=== PATIENT | male | born 1990 | race American Indian/Alaskan Native ===

== ENCOUNTER 2016-11-02 05:27 | Emergency (ER) | payer BC, OTHER ==
[2016-11-02] MEDS ORDERED: NORCO 7.5/325 PO ONE (07:57)
[2016-11-02] MEDS ORDERED: ROCEPHIN IM ONE (07:57)
[2016-11-02] MEDS ORDERED: TORADOL IM ONE (07:57)
[2016-11-02] MEDS ORDERED: XYLOCAINE 1% MPF 5 mL INFILTRATI ONE (07:57)
[2016-11-02] MEDS ORDERED: ZITHROMAX PO ONE (07:57)
[2016-11-02] MEDS ORDERED: FLEXERIL PO ONE (07:57)
[2016-11-02 08:24] LABS: Bilirubin,Urine NEG (Negative); Blood,Urine NEG (Negative); Ketones,Urine NEG (Negative); Leukocyte Esterase,Urine TR (Negative); Mucus,Urine FEW /HPF; Nitrite,Urine NEG (Negative); Protein,Urine <15 mg/dL mg/dL (Negative); Urobilinogen,Urine < 2.0 mg/dL (<2.0)
--- NOTE | 2016-11-02 09:34 | XRay Report ---
FINAL REPORT EXAM: XR SPINE THORACIC 3V HISTORY: back pain, popping sensation TECHNIQUE: 3 views of the thoracic spine PRIORS: None FINDINGS: Scoliosis dextroconvex thoracic scoliosis, measuring about 15 from the upper endplate of T1 to the lower endplate of T11. No fracture or focal malalignment. Vertebral body heights and disc spaces appear normal. IMPRESSION: 1. Scoliosis.
--- NOTE | 2016-11-02 09:34 | XRay Report ---
FINAL REPORT EXAM: XR SPINE LUMBOSACRAL 2-3V HISTORY: back pain, popping sensation TECHNIQUE: 3 views of the lumbar spine. PRIORS: None FINDINGS: Thoracolumbar scoliosis, convex to the right which measures about 20 from the lower endplate of T11 to the lower endplate of L4. Transitional lumbosacral anatomy.. Normal SI joints. No focal alignment abnormality. Discs are maintained. 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 IMPRESSION: 1. Scoliosis. 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
--- NOTE | 2016-11-02 10:13 | Emergency Department Report ---
ED Back Pain/Injury HPI - General Chief Complaint: Back Pain/Injury Stated Complaint: BACK PAIN Source: patient Mode of arrival: Ambulatory Limitations: No Limitations - History of Present Illness Initial Comments: 26 year old male presents to ED with upper and lower back pain and would also like to be checked for STD. patient is stable, neurologically intact and in no acute distress. patient denies injury or trauma. patient also states he has been sexually active with someone who was recently diagnosed with STD. MD Complaint: back pain -: Gradual Similar Symptoms Previously: No Radiation: none Severity: mild Severity scale (0 -10): 1 Quality: aching Consistency: intermittent Worsens With: movement Associated Symptoms: denies other symptoms. denies: confusion, weakness, chest pain, numbness, difficulty walking, cough, difficulty urinating, diaphoresis, incontinence, fever/chills, constipation, headaches, abdominal pain, loss of appetite, malaise, nausea/vomiting, seizure, shortness of breath - Related Data Previous Rx's Medication Instructions Recorded Last Taken Type Ketorolac [Toradol] 10 mg PO Q6H PRN #20 tablet 11/02/16 Unknown Rx methOCARBAMOL [Robaxin TAB] 500 mg PO BID #20 tab 11/02/16 Unknown Rx Allergies Allergy/AdvReac Type Severity Reaction Status Date / Time No Known Allergies Allergy Verified 11/02/16 07:16 ED Review of Systems ROS: Stated complaint: BACK PAIN Other details as noted in HPI Constitutional: denies: chills, fever Eyes: denies: eye pain, eye discharge, vision change ENT: denies: ear pain, throat pain Respiratory: denies: cough, shortness of breath, wheezing Cardiovascular: denies: chest pain, palpitations Endocrine: no symptoms reported Gastrointestinal: denies: abdominal pain, nausea, diarrhea Genitourinary: denies: urgency, dysuria Musculoskeletal: back pain. denies: joint swelling Skin: denies: rash, lesions Neurological: denies: headache, weakness, paresthesias Psychiatric: denies: anxiety, depression Hematological/Lymphatic: denies: easy bleeding, easy bruising ED Past Medical Hx - Past Medical History Previous Medical History?: No - Surgical History Past Surgical History?: No - Social History Smoking Status: Current Some Day Smoker Substance Use Type: Alcohol - Medications Home Medications: Home Medications Medication Instructions Recorded Confirmed Last Taken Type Ketorolac [Toradol] 10 mg PO Q6H PRN #20 tablet 11/02/16 Unknown Rx methOCARBAMOL [Robaxin TAB] 500 mg PO BID #20 tab 11/02/16 Unknown Rx ED Physical Exam - General Limitations: No Limitations General appearance: alert, in no apparent distress - Head Head exam: Present: atraumatic, normocephalic - Eye Eye exam: Present: normal appearance - ENT ENT exam: Present: mucous membranes moist - Neck Neck exam: Present: normal inspection - Respiratory Respiratory exam: Present: normal lung sounds bilaterally. Absent: respiratory distress - Cardiovascular Cardiovascular Exam: Present: regular rate, normal rhythm. Absent: systolic murmur, diastolic murmur, rubs, gallop - GI/Abdominal GI/Abdominal exam: Present: soft, normal bowel sounds. Absent: distended, tenderness - Rectal Rectal exam: Present: deferred - Extremities Exam Extremities exam: Present: normal inspection, full ROM. Absent: tenderness - Back Exam Back exam: Present: normal inspection, full ROM, other (patellar reflexes normal bilaterally, normal strength in all 4 extremeties ). Absent: tenderness - Neurological Exam Neurological exam: Present: alert, oriented X3, normal gait - Psychiatric Psychiatric exam: Present: normal affect, normal mood - Skin Skin exam: Present: warm, dry, intact, normal color. Absent: rash ED Course Vital Signs 11/02/16 11/02/16 07:13 10:31 Temperature 98.5 F Pulse Rate 87 80 Respiratory 16 18 Rate Blood Pressure 126/71 Blood Pressure 122/68 [Right] O2 Sat by Pulse 97 97 Oximetry ED Medical Decision Making - Radiology Data Radiology results: report reviewed XR thoracic Scoliosis Xr lumbar Scoliosis. 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 - Medical Decision Making 26 year old male presents to ED with intermittent upper and lower back pain. patient states his pain has resolved prior to discharge. patient is stable, neurologically intact and in no acute distress and ambulatory. patient should follow up with Dr. Luna within 2-3 days if pain persists or worsens. Critical care attestation.: If time is entered above; I have spent that time in minutes in the direct care of this critically ill patient, excluding procedure time. ED Disposition Clinical Impression: STD exposure, Back pain without sciatica Disposition: - TO HOME OR SELFCARE Is pt being admited?: No Does the pt Need Aspirin: No Condition: Stable Instructions: Sexually Transmitted Diseases (ED) Prescriptions: Ketorolac [Toradol] 10 mg PO Q6H PRN #20 tablet PRN Reason: Pain methOCARBAMOL [Robaxin TAB] 500 mg PO BID #20 tab Referrals: SIDNEY LUNA MD [Staff Physician] - 2-3 Days
[2016-11-02 10:32] VITALS: BP 122/68
== END 2016-11-02 10:31 | disposition home or self-care (01) ==
LOC: ED 05:27
DX: M54.5 Low back pain (principal); Z20.2 Contact with and (suspected) exposure to infections with a predominantly sexual mode of transmission; F17.200 Nicotine dependence, unspecified, uncomplicated
CPT/HCPCS: 72072; 72100; 81001; 87591; 96372; 99283; J0696; J1885

== ENCOUNTER 2016-11-22 03:56 | Emergency (ER) | payer OTHER ==
[2016-11-22 05:16] LABS: Anion Gap 18 mmol/L; Blood Urea Nitrogen 14 mg/dL (9-20); Calcium 9.4 mg/dL (8.4-10.2); Carbon Dioxide 24 mmol/L (22-30); Chloride 102.2 mmol/L (98-107); Glucose 83 mg/dL (75-100); Sodium 140 mmol/L (137-145)
[2016-11-22 05:18] LABS: Basophils % (Auto) 0.6 % (0.0-1.8); Hematocrit 43.8 % (35.5-45.6); Hemoglobin 14.5 gm/dl (11.8-15.2); Mean Corpuscular HGB Conc 33 % (32-34); Mean Corpuscular Hemoglobin 29 pg (28-32); Mean Corpuscular Volume 88 fl (84-94); Platelet Count 141 K/mm3 (140-440); Red Blood Count 5.01 M/mm3 (3.65-5.03); Red Cell Distribution Width 13.7 % (13.2-15.2); White Blood Count 4.7 K/mm3 (4.5-11.0)
[2016-11-22] MEDS ORDERED: TORADOL IM ONE (10:35)
[2016-11-22] MEDS ORDERED: ULTRAM PO ONE (10:35)
--- NOTE | 2016-11-22 11:31 | Emergency Department Report ---
ED Chest Pain HPI - General Chief Complaint: Chest Pain Stated Complaint: CHEST/BACK PAIN Time Seen by Provider: 11/22/16 10:21 Source: patient Mode of arrival: Ambulatory Limitations: No Limitations - History of Present Illness Initial Comments: 26-year-old male with a past medical history presents to the hospital complaining sternal chest pain and left posterior thoracic pain 1 day. Pain is intermittent, described as a pressure, worse with palpation and movement. Pain is rated 10/10 in intensity however, no distress noted at this time. Patient is resting comfortable on the bed. Mild shortness of breath reported without nausea, vomiting, diaphoresis, cough, fever, recent travel, leg pain, leg extremity injury, or history of PE or DVT. Patient smokes cigarettes. Severity scale (0 -10): 8 - Related Data Previous Rx's Medication Instructions Recorded Last Taken Type Ketorolac [Toradol] 10 mg PO Q6H PRN #20 tablet 11/02/16 Unknown Rx methOCARBAMOL [Robaxin TAB] 500 mg PO BID #20 tab 11/02/16 Unknown Rx Ibuprofen [Motrin] 600 mg PO Q8H PRN #30 tablet 11/22/16 Unknown Rx traMADol [Ultram 50 MG tab] 50 mg PO Q6HR PRN #20 tablet 11/22/16 Unknown Rx Allergies Allergy/AdvReac Type Severity Reaction Status Date / Time No Known Allergies Allergy Verified 11/02/16 07:16 Heart Score - HEART Score History: Slightly suspicious EKG: Normal Age: < 45 Risk factors: 1-2 risk factors (smoking) Troponin: < normal limit HEART Score: 1 - Critical Actions Critical Actions: 0-3 pts:0.9-1.7%risk of adverse cardiac event.Candidate for discharge ED Review of Systems ROS: Stated complaint: CHEST/BACK PAIN Other details as noted in HPI Comment: All other systems reviewed and negative Other: Constitutional: No fevers chills Eyes: No eye pain visual changes ENT: No ear pain or throat pain Neck: Denies pain Respiratory: Denies cough wheezing shortness of breath Cardiovascular: Denies palpitations, syncope GI: Denies abdominal pain, nausea, vomiting, diarrhea : Denies dysuria Musculoskeletal: Denies back pain Skin: Denies rash, lesions, erythema Neurologic: Denies headache, numbness, weakness Psychiatric: Denies suicidal ideation, hallucinations ED Past Medical Hx - Past Medical History Previous Medical History?: No - Surgical History Past Surgical History?: No - Social History Smoking Status: Current Every Day Smoker Substance Use Type: None - Medications Home Medications: Home Medications Medication Instructions Recorded Confirmed Last Taken Type Ketorolac [Toradol] 10 mg PO Q6H PRN #20 tablet 11/02/16 Unknown Rx methOCARBAMOL [Robaxin TAB] 500 mg PO BID #20 tab 11/02/16 Unknown Rx Ibuprofen [Motrin] 600 mg PO Q8H PRN #30 tablet 11/22/16 Unknown Rx traMADol [Ultram 50 MG tab] 50 mg PO Q6HR PRN #20 tablet 11/22/16 Unknown Rx ED Physical Exam - General Limitations: No Limitations - Other Other exam information: General: No limitations, patient is alert in no acute distress Head exam: Atraumatic, normocephalic Eyes exam: Normal appearance, pupils equal reactive to light, extraocular movements intact ENT: Moist mucous membrane, normal oropharynx Neck exam: Normal inspection, full range of motion, no meningismus nontender Respiratory exam: Clear to auscultation bilateral, no wheezes, rales, crackles or reproducible sternal chest wall tenderness. Reproducible left posterior trapezius muscle tenderness Cardiovascular: Normal rate and rhythm, normal heart sounds Abdomen: Soft, nondistended, and nontender, with normal bowel sounds, no rebound, or guarding Extremity: Full range of motion normal inspection no deformity, no calf tenderness or edema Back: Normal Inspection, full range of motion, no tenderness Neurologic: Alert, oriented x3, cranial nerves intact, no motor or sensory deficit Psychiatric: normal affect, normal mood Skin: Warm, dry, intact ED Course Vital Signs 11/22/16 11/22/16 11/22/16 04:10 10:08 10:09 Temperature 99.1 F 98.1 F Pulse Rate 80 68 Respiratory 20 18 18 Rate Blood Pressure 138/99 Blood Pressure 121/90 [Left] O2 Sat by Pulse 98 99 99 Oximetry - Reevaluation(s) Reevaluation #1: 11/22/16 11:30 Toradol and tramadol have been ordered for pain RADHA score - Radha Score Age > 65: (0) No Aspirin use within the Past 7 Days: (0) No 3 or more CAD Risk Factors: (0) No 2 or more Angina events in past 24 hrs: (0) No Known CAD with more than 50% Stenosis: (0) No Elevated Cardiac Markers: (0) No ST Deviation Greater than 0.5mm: (0) No RADHA Score: 0 ED Medical Decision Making - Lab Data Result diagrams: 11/22/16 04:32 11/22/16 04:32 Lab Results 11/22/16 11/22/16 11/22/16 Range/Units 04:32 04:32 08:33 WBC 4.7 (4.5-11.0) K/mm3 RBC 5.01 (3.65-5.03) M/mm3 Hgb 14.5 (11.8-15.2) gm/dl Hct 43.8 (35.5-45.6) % MCV 88 (84-94) fl MCH 29 (28-32) pg MCHC 33 (32-34) % RDW 13.7 (13.2-15.2) % Plt Count 141 (140-440) K/mm3 Lymph % (Auto) 38.1 H (13.4-35.0) % [place] % (Auto) 7.3 (0.0-7.3) % Eos % (Auto) 1.0 (0.0-4.3) % Baso % (Auto) 0.6 (0.0-1.8) % Lymph # 1.8 (1.2-5.4) K/mm3 [place]ee # 0.3 (0.0-0.8) K/mm3 Eos # 0.0 (0.0-0.4) K/mm3 Baso # 0.0 (0.0-0.1) K/mm3 Seg Neutrophils % 53.0 (40.0-70.0) % Seg Neutrophils # 2.5 (1.8-7.7) K/mm3 Sodium 140 (137-145) mmol/L Potassium 4.0 (3.6-5.0) mmol/L Chloride 102.2 (98-107) mmol/L Carbon Dioxide 24 (22-30) mmol/L Anion Gap 18 mmol/L BUN 14 (9-20) mg/dL Creatinine 1.0 (0.8-1.5) mg/dL Estimated GFR > 60 ml/min BUN/Creatinine Ratio 14.00 % Glucose 83 (75-100) mg/dL Calcium 9.4 (8.4-10.2) mg/dL Troponin T < 0.010 < 0.010 (0.00-0.029) ng/mL - EKG Data -: EKG Interpreted by Me (NSR 60 sinus arrhythmia and no ST elevation or T-wave inversion) - Radiology Data Radiology results: image reviewed (chest x-ray PA and lateral: No acute findings ) - Medical Decision Making Patient's Wells criteria for PE and DVT are 0. Patient has no risk factors. Chest pain is reproducible. EKG normal sinus with cardiac enzymes negative 2. Patient will be discharged musculoskeletal pain/costochondritis. Pain medication will be provided. Outpatient follow-up will be encouraged. - Differential Diagnosis costochondritis, atypical chest pain, WI, PE Critical Care Time: No Critical care attestation.: If time is entered above; I have spent that time in minutes in the direct care of this critically ill patient, excluding procedure time. ED Disposition Clinical Impression: Costochondritis, acute, Trapezius muscle strain Disposition: TO HOME OR SELFCARE Is pt being admited?: No Does the pt Need Aspirin: No Condition: Stable Instructions: Costochondritis (ED), Thoracic Pain (ED) Additional Instructions: Take the medication as prescribed. Follow up with either primary care doctor or clinic provided. Return if symptoms worsen as indicated by you discharge instructions. Prescriptions: Ibuprofen [Motrin] 600 mg PO Q8H PRN #30 tablet PRN Reason: Pain traMADol [Ultram 50 MG tab] 50 mg PO Q6HR PRN #20 tablet PRN Reason: Pain Referrals: [facility] [Provider Group] - 3-5 Days NAZARIO RALPH MD [Staff Physician] - 3-5 Days Time of Disposition: 11:34
[2016-11-22 12:30] VITALS: BP 105/63
--- NOTE | 2016-11-22 13:39 | XRay Report ---
CHEST TWO VIEWS: 11/22/16 03:56:00 CLINICAL: Chest pain. COMPARISON: None FINDINGS: Normal heart and pulmonary vasculature. The lungs are normally expanded and clear.The bones and soft tissues are unremarkable. IMPRESSION: Normal chest.
== END 2016-11-22 12:36 | disposition home or self-care (01) ==
LOC: ED 03:56
DX: M94.0 Chondrocostal junction syndrome [Tietze] (principal); S46.919A Strain of unspecified muscle, fascia and tendon at shoulder and upper arm level, unspecified arm, initial encounter; X58.XXXA Exposure to other specified factors, initial encounter; Y93.89 Activity, other specified; Y92.9 Unspecified place or not applicable; Y99.9 Unspecified external cause status; F17.200 Nicotine dependence, unspecified, uncomplicated
CPT/HCPCS: 36415; 71020; 80048; 84484; 85025; 93005; 93010; 96372; 99285; J1885

== ENCOUNTER 2016-12-22 06:10 | Emergency (ER) | payer OTHER ==
[2016-12-22 06:17] VITALS: BP 110/88
--- NOTE | 2016-12-22 09:41 | Emergency Department Report ---
ED Back Pain/Injury HPI - General Chief Complaint: Back Pain/Injury Stated Complaint: BACK PAIN Time Seen by Provider: 12/22/16 09:03 Source: patient, family Mode of arrival: Ambulatory Limitations: No Limitations - History of Present Illness Initial Comments: Patient here complaining of back pain and headache. He was here on 11/22/2016 and 11/02/2016 for similar complaints. He states that he's been having headache on and off for 5 years and new headache started 4 days ago. Denies any visual difficulties. Pain is located to the right side of his head and a cane. He said he took icax-iba-[id number] pain medication without any relief. Patient also has back pain that he said he was seen here and they did an x-ray and told him that there was nothing wrong. He denies any urinary frequency urgency or burning. Denies any nausea or vomiting. Patient said that he think he pulled a muscle yesterday. Denies any blood in his urine. Denies any fever or chills. MD Complaint: back pain, other ([place]) Onset/Timin -: days(s) Similar Symptoms Previously: Yes Place: home Radiation: none Severity: severe Severity scale (0 -10): 8 Quality: aching Consistency: intermittent Improves With: immobilization Worsens With: movement, walking Context: turning/twisting, bending Associated Symptoms: headaches. denies: confusion, weakness, chest pain, numbness, difficulty walking, cough, difficulty urinating, diaphoresis, incontinence, fever/chills, constipation, abdominal pain, loss of appetite, malaise, nausea/vomiting, rash, seizure, shortness of breath, syncope Treatments Prior to Arrival: acetaminophen - Related Data Previous Rx's Medication Instructions Recorded Last Taken Type Ketorolac [Toradol] 10 mg PO Q6H PRN #20 tablet 11/02/16 Unknown Rx methOCARBAMOL [Robaxin TAB] 500 mg PO BID #20 tab 11/02/16 Unknown Rx Ibuprofen [Motrin] 600 mg PO Q8H PRN #30 tablet 11/22/16 Unknown Rx traMADol [Ultram 50 MG tab] 50 mg PO Q6HR PRN #20 tablet 11/22/16 Unknown Rx Acetaminophen/Codeine [Tylenol 1 tab PO Q6H PRN #12 tab 12/22/16 Unknown Rx /Codeine # 3 tab] Cyclobenzaprine [Flexeril] 10 mg PO TID PRN #15 tablet 12/22/16 Unknown Rx Ibuprofen [Motrin] 600 mg PO Q8H PRN #15 tablet 12/22/16 Unknown Rx Allergies Allergy/AdvReac Type Severity Reaction Status Date / Time No Known Allergies Allergy Verified 11/02/16 07:16 ED Review of Systems ROS: Stated complaint: BACK PAIN Other details as noted in HPI Comment: All other systems reviewed and negative Constitutional: no symptoms reported Eyes: denies: eye discharge ENT: denies: ear pain, throat pain, congestion Respiratory: no symptoms reported Cardiovascular: denies: chest pain, dyspnea on exertion, edema, syncope Gastrointestinal: denies: abdominal pain, nausea, vomiting, diarrhea, constipation, hematemesis, melena Genitourinary: denies: urgency, dysuria, frequency, hematuria, discharge, testicular pain, testicular mass Musculoskeletal: back pain. denies: joint swelling, arthralgia, myalgia Skin: denies: rash Neurological: headache. denies: weakness, numbness, paresthesias, confusion, abnormal gait ED Past Medical Hx - Past Medical History Previous Medical History?: Yes Hx Headaches / Migraines: Yes (5 years) Additional medical history: Back pain - Surgical History Past Surgical History?: No - Family History Family history: hypertension - Social History Smoking Status: Current Every Day Smoker Substance Use Type: Alcohol, Marijuana Other Social History: Single - Medications Home Medications: Home Medications Medication Instructions Recorded Confirmed Last Taken Type Ketorolac [Toradol] 10 mg PO Q6H PRN #20 tablet 11/02/16 Unknown Rx methOCARBAMOL [Robaxin TAB] 500 mg PO BID #20 tab 11/02/16 Unknown Rx Ibuprofen [Motrin] 600 mg PO Q8H PRN #30 tablet 11/22/16 Unknown Rx traMADol [Ultram 50 MG tab] 50 mg PO Q6HR PRN #20 tablet 11/22/16 Unknown Rx Acetaminophen/Codeine [Tylenol 1 tab PO Q6H PRN #12 tab 12/22/16 Unknown Rx /Codeine # 3 tab] Cyclobenzaprine [Flexeril] 10 mg PO TID PRN #15 tablet 12/22/16 Unknown Rx Ibuprofen [Motrin] 600 mg PO Q8H PRN #15 tablet 12/22/16 Unknown Rx ED Physical Exam - General Limitations: No Limitations General appearance: alert, in no apparent distress - Head Head exam: Present: atraumatic, normocephalic, normal inspection - Expanded Head Exam Expanded Head exam: Absent: laceration, abrasion, contusion, hematoma, racoon eyes, moreira's sign, general tenderness, tenderness of temporal artery, CSF rhinorrhea , CSF otorrhea - Eye Eye exam: Present: normal appearance, PERRL, EOMI. Absent: scleral icterus, conjunctival injection, nystagmus, periorbital swelling, periorbital tenderness Pupils: Present: normal accommodation - ENT ENT exam: Present: normal exam, normal orophraynx, mucous membranes moist, TM's normal bilaterally, normal external ear exam - Neck Neck exam: Present: normal inspection, full ROM. Absent: tenderness, meningismus, lymphadenopathy - Expanded Neck Exam Expanded Neck exam: Absent: tenderness, midline deformity, anterior neck swelling, thyroid mass, carotid bruit, tracheal deviation - Respiratory Respiratory exam: Present: normal lung sounds bilaterally. Absent: respiratory distress, chest wall tenderness - Cardiovascular Cardiovascular Exam: Present: regular rate, normal rhythm, normal heart sounds - GI/Abdominal GI/Abdominal exam: Present: soft, normal bowel sounds. Absent: distended, tenderness, guarding, rebound, rigid, organomegaly, mass, bruit - Extremities Exam Extremities exam: Present: normal inspection, full ROM, normal capillary refill , other (extremities without any clubbing cyanosis or edema. No neurovascular compromise. +2 pulses in all extremities.). Absent: tenderness, pedal edema, joint swelling, calf tenderness - Back Exam Back exam: Present: normal inspection, full ROM. Absent: tenderness, CVA tenderness (R), CVA tenderness (L), muscle spasm, paraspinal tenderness, vertebral tenderness, rash noted - Expanded Back Exam Expanded Back exam: Absent: saddle anesthesia Back exam: Negative Straight Leg Raising: Left, Right - Neurological Exam Neurological exam: Present: alert, oriented X3, normal gait, reflexes normal. Absent: motor sensory deficit - Expanded Neurological Exam Expanded Neurological exam: Absent: innattentive, memory loss-remote event, memory loss- recent event, ataxia, receptive aphasia, expressive aphasia, total aphasia, tremor, protecting the airway Patient oriented to: Present: person, place, time Speech: Present: fluid speech Cranial nerves: EOM's Intact: Normal, Gag Reflex: Normal, Tongue Deviation: Normal, Nystagmus: Normal, Facial Sensation: Normal Cerebellar function: Romberg: Normal Upper motor neuron: Pronator Drift: Normal, Sensory Extinction: Normal Sensory exam: Upper Extremity Light Touch: Normal, Upper Extremity Pin Prick: Normal, Upper Extremity Temperature: Normal, UE 2 Point Discrimination: Normal, Lower Extremity Light Touch: Normal, Lower Extremity Pin Prick: Normal, Lower Extremity Temperature: Normal, LE 2 Point Discrimination: Normal Motor strength exam: RUE: 5, LUE: 5, RLE: 5, LLE: 5 DTR: bicep (R): 2+, bicep (L): 2+, tricep (R): 2+, tricep (L): 2+, knee (R): 2+ , knee (L): 2+, ankle (R): 2+, ankle (L): 2+ Best Eye Response ([place]): (4) open spontaneously Best Motor Response ([place]): (6) obeys commands Best Verbal Response ([place]): (5) oriented [place] Total: 15 - Psychiatric Psychiatric exam: Present: normal affect, normal mood - Skin Skin exam: Present: warm, dry, intact, normal color. Absent: rash ED Course Vital Signs 12/22/16 06:16 Temperature 97.5 F L Pulse Rate 60 Respiratory 18 Rate Blood Pressure 110/88 [Right] O2 Sat by Pulse 100 Oximetry - Reevaluation(s) Reevaluation #1: 12/22/16 10:[address] A[address] scan results Reevaluation #2: 12/22/16 14:04 Awaiting urinalysis results. Patient just given pain medication Percocet 5/325 for pain. Reevaluation #3: 12/22/16 14:54 reports releif of pain ED Medical Decision Making - Lab Data Lab Results 12/22/16 Range/Units 12:47 Urine Color Yellow (Yellow) Urine Turbidity Clear (Clear) Urine pH 7.0 (5.0-7.0) Ur Specific [place] 1.018 (1.003-1.030) Urine Protein <15 mg/dl (Negative) mg/dL Urine Glucose (UA) Neg (Negative) mg/dL Urine Ketones Neg (Negative) mg/dL Urine Blood Neg (Negative) Urine Nitrite Neg (Negative) Urine Bilirubin Neg (Negative) Urine Urobilinogen < 2.0 (<2.0) mg/dL Ur Leukocyte Esterase Neg (Negative) Urine WBC (Auto) 2.0 (0.0-6.0) /HPF Urine RBC (Auto) 3.0 (0.0-6.0) /HPF U Epithel Cells (Auto) < 1.0 (0-13.0) /HPF Urine Mucus Few /HPF - Radiology Data Radiology results: report reviewed CT scan of the thoracic spine reveal no acute thoracic spine abnormality with nonobstructive bilateral nephrolithiasis and few other findings. Patient also have slight lower thoracic upper lumbar Dexterotocurvuture. CT scan of the lumbar spine revealed no acute lumbar spine abnormality. Patient with bilateral spondylolisthesis and bilateral nephrolithiasis. Disc are preserved no large disc protrusion or spinal stenosis C-spine of the head revealed no acute abnormalities. - Medical Decision Making ED course: Patient here complaining of headache that he has been on and off and on for 5 years and has not had a CT scan nor has he seen a neurologist. He said his headache flared up 4 days ago and he is having an achy pain at the right side of his head. Denies any visual difficulties or abnormal gait. Patient is neurologically intact. He is also complaining of back pain that he said he might of pulled a muscle and this started 4 days ago but patient and was here for similar complaints on 11/02/2016 and 11/22/2016 and they did x-ray of his lumbar spine which he said show no abnormalities. CT scan of the lumbar spine reveals that patient has no acute fracture or subluxation. He has bilateral L5 spondylolisthesis and bilateral nephrolithiasis which is nonobstructing. Kidney stone is incidental finding because the patient does not have any CVA tenderness, fever, urinary burning frequency or urgency or nausea or vomiting. He is also not having any abdominal pain. She denies any history of kidney stones. CT scan of the thoracic spine also shows that he has nephrolithiasis but there are no acute subluxation or fracture seen. This also shows that patient with presumable bone islands/hemangiomas. He also has the extraoral roto-curvature to lower thoracic and upper lumbar area. Patient given results of his urinalysis, and multiple CT scan. He voices understanding of diagnosis and discharge instruction. He also understands that he is underneath follow-up with orthopedic doctor and also urology for kidney stones. He will also need to follow up with neurologist for chronic headache. Patient discharged home with prescription for Motrin, Tylenol 3 and Flexeril. Diagnosis of lumbar strain, back pain, bilateral kidney stones without obstruction, headache unspecified, L5 spondylolisthesis. Critical care attestation.: If time is entered above; I have spent that time in minutes in the direct care of this critically ill patient, excluding procedure time. ED Disposition Clinical Impression: Bilateral nephrolithiasis, Spondylosis of lumbar spine Headache Qualifiers: Headache type: unspecified Headache chronicity pattern: acute headache Intractability: not intractable Qualified Code(s): R51 - Headache Back pain Qualifiers: Back pain location: back pain in other location Chronicity: unspecified Qualified Code(s): M54.89 - Other dorsalgia Disposition: DC-01 TO HOME OR SELFCARE Is pt being admited?: No Does the pt Need Aspirin: No Condition: Stable Instructions: Acute Headache (ED), Low Back Strain (ED), Core Strengthening Exercises (GEN), Kidney Stones (ED), Chronic Back Pain (ED), Degenerative Disc Disease (ED) Additional Instructions: follow-up with orthopedic doctor as discussed. Follow-up urologist for kidney stones Follow-up with neurologist for chronic headache Please do not drive or operate heavy machinery while taking Tylenol No. 3 and/ or Flexeril as these medication causes drowsiness Prescriptions: Acetaminophen/Codeine [Tylenol /Codeine # 3 tab] 1 tab PO Q6H PRN #12 tab PRN Reason: Pain, Moderate (4-6) Cyclobenzaprine [Flexeril] 10 mg PO TID PRN #15 tablet PRN Reason: Muscle Spasm Ibuprofen [Motrin] 600 mg PO Q8H PRN #15 tablet PRN Reason: Pain Referrals: PRIMARY CAREMD [Primary Care Provider] - 2-3 Days [facility] [Provider Group] - 2-3 Days ASHLEY WALLACE MD [Staff Physician] - 2-3 Days SIDNEY LEOS MD [Staff Physician] - 2-3 Days Forms: Work/School Release Form(ED)
--- NOTE | 2016-12-22 10:49 | Cat Scan Report ---
CT HEAD WITHOUT CONTRAST: HISTORY: Headache. Serial contiguous axial images were obtained through the cranium. Intravenous contrast material was not administered. The ventricles are normal in size and appearance. There is no mass effect or midline shift. No areas of abnormally increased or decreased attenuation are seen. No mass lesion is seen. The mastoid air cells and visualized portions of the sinuses are normal. IMPRESSION: Cranial CT scan within normal limits.
--- NOTE | 2016-12-22 11:21 | Cat Scan Report ---
CT LUMBAR SPINE WITHOUT CONTRAST INDICATION: Frequent back pain. COMPARISON: None similar. FINDINGS: Noncontrast axial, sagittal and coronal CT reconstructions through the lumbar spine demonstrate normal vertebral body stature and alignment except for slight dextrorotocurvature. Bilateral L5 pars defects incidentally noted. Preserved disc heights. No large disc protrusion or spinal stenosis suspected. Numerous small bilateral renal nonobstructing calculi incidentally seen. CONCLUSION: No acute lumbar spine CT abnormality with bilateral L5 spondylolysis and bilateral nephrolithiasis, as described. Please correlate. Thank you for the opportunity to participate in this patient's care.
--- NOTE | 2016-12-22 11:32 | Cat Scan Report ---
CT THORACIC SPINE WITHOUT CONTRAST INDICATION: Frequent back pain. COMPARISON: None similar. FINDINGS: Noncontrast axial, sagittal and coronal CT reconstructions through the thoracic spine demonstrate normal vertebral body stature, alignment and disc heights. Few small sclerotic foci noted as 3 mm in C7 vertebral body, axial image 17, series 3, approximately 3 mm right paraspinal in T2, axial image 44, approximately 1 cm in T5 vertebral body on the right as on axial image 96, series 3 and another faint 4 mm right paramidline T6 vertebral body posteriorly on axial image 113, presumably bone island/hemangiomas. No large disc protrusion identified, to the extent assessed. No abnormal paraspinal density. Clear imaged lungs. Patent airway. Slight lower thoracic-upper lumbar dextrorotocurvature. Few small nonobstructing bilateral renal calculi also noted. CONCLUSION: No acute thoracic spine CT abnormality with nonobstructing bilateral nephrolithiasis and few other findings, as described. Thank you for the opportunity to participate in this patient's care.
[2016-12-22] MEDS ORDERED: NORCO 5/325 PO ONE (14:04)
[2016-12-22 14:06] LABS: Bilirubin,Urine NEG (Negative); Blood,Urine NEG (Negative); Ketones,Urine NEG (Negative); Leukocyte Esterase,Urine NEG (Negative); Mucus,Urine FEW /HPF; Nitrite,Urine NEG (Negative); Protein,Urine <15 mg/dL mg/dL (Negative); Urobilinogen,Urine < 2.0 mg/dL (<2.0)
== END 2016-12-22 15:53 | disposition home or self-care (01) ==
LOC: ED 06:10
DX: N20.0 Calculus of kidney (principal); M47.9 Spondylosis, unspecified; R51 Headache; F17.210 Nicotine dependence, cigarettes, uncomplicated; F12.10 Cannabis abuse, uncomplicated
CPT/HCPCS: 70450; 72128; 72131; 81001; 87086; 99284

== ENCOUNTER 2017-04-21 03:02 | Emergency (ER) | payer OTHER ==
[2017-04-21] MEDS ORDERED: MOTRIN PO ONE (09:48)
--- NOTE | 2017-04-21 10:31 | Emergency Department Report ---
- General Chief Complaint: Fever Stated Complaint: FEVER Time Seen by Provider: 04/21/17 09:36 Source: patient Mode of arrival: Ambulatory Limitations: No Limitations - History of Present Illness Initial Comments: This is a 26-year-old male nontoxic, well nourished in appearance, no acute signs of distress presents to the ED with c/o of productive cough, fever, chills , nasal congestion, rhinnorrhea, and body aches x2 days. Patient denies any recent travels, long car rides, or recent hospital stays. Patient describes productive cough as yellow mucus production. Patient denies any calf pain or calf tenderness. Patient denies chest pain, shortness of breathe, fever, chills , headache, nausea, vomiting, abdominal pain, numbness, tingling, or back pain. Patient denies any drug allergies or PMH. MD Complaint: fever, cough, rhinorrhea, nasal congestion -: days(s) (2) Severity: mild Severity scale (0 -10): 8 Quality: aching Consistency: constant Improves With: nothing Worsens With: nothing Associated Symptoms: fever, chills, rhinorrhea, nasal congestion, cough. denies : myalgias, diaphoresis, headache, sore throat, stiff neck, chest pain, shortness of breath, abdominal pain, nausea, vomiting, diarrhea, dysuria, rash, confusion, right sweats, weight loss, epistaxis, hoarseness, ear pain Treatments Prior to Arrival: none - Related Data Previous Rx's Medication Instructions Recorded Last Taken Type Ketorolac [Toradol] 10 mg PO Q6H PRN #20 tablet 11/02/16 Unknown Rx methOCARBAMOL [Robaxin TAB] 500 mg PO BID #20 tab 11/02/16 Unknown Rx Ibuprofen [Motrin] 600 mg PO Q8H PRN #30 tablet 11/22/16 Unknown Rx traMADol [Ultram 50 MG tab] 50 mg PO Q6HR PRN #20 tablet 11/22/16 Unknown Rx Acetaminophen/Codeine [Tylenol 1 tab PO Q6H PRN #12 tab 12/22/16 Unknown Rx /Codeine # 3 tab] Cyclobenzaprine [Flexeril] 10 mg PO TID PRN #15 tablet 12/22/16 Unknown Rx Ibuprofen [Motrin] 600 mg PO Q8H PRN #15 tablet 12/22/16 Unknown Rx Ibuprofen [Motrin] 600 mg PO Q6H PRN #30 tablet 04/21/17 Unknown Rx Oseltamivir [Tamiflu] 75 mg PO BID #14 cap 04/21/17 Unknown Rx Allergies Allergy/AdvReac Type Severity Reaction Status Date / Time No Known Allergies Allergy Verified 11/02/16 07:16 ED Review of Systems ROS: Stated complaint: FEVER Other details as noted in HPI Constitutional: chills, fever Eyes: denies: eye pain, eye discharge, vision change ENT: denies: ear pain, throat pain Respiratory: cough. denies: shortness of breath, wheezing Cardiovascular: denies: chest pain, palpitations Endocrine: no symptoms reported Gastrointestinal: denies: abdominal pain, nausea, diarrhea Genitourinary: denies: urgency, dysuria Musculoskeletal: denies: back pain, joint swelling, arthralgia Skin: denies: rash, lesions Neurological: denies: headache, weakness, paresthesias Psychiatric: denies: anxiety, depression Hematological/Lymphatic: denies: easy bleeding, easy bruising ED Past Medical Hx - Past Medical History Previous Medical History?: Yes Hx Headaches / Migraines: Yes (5 years) Additional medical history: Back pain - Surgical History Past Surgical History?: No - Social History Smoking Status: Never Smoker - Medications Home Medications: Home Medications Medication Instructions Recorded Confirmed Last Taken Type Ketorolac [Toradol] 10 mg PO Q6H PRN #20 tablet 11/02/16 Unknown Rx methOCARBAMOL [Robaxin TAB] 500 mg PO BID #20 tab 11/02/16 Unknown Rx Ibuprofen [Motrin] 600 mg PO Q8H PRN #30 tablet 11/22/16 Unknown Rx traMADol [Ultram 50 MG tab] 50 mg PO Q6HR PRN #20 tablet 11/22/16 Unknown Rx Acetaminophen/Codeine [Tylenol 1 tab PO Q6H PRN #12 tab 12/22/16 Unknown Rx /Codeine # 3 tab] Cyclobenzaprine [Flexeril] 10 mg PO TID PRN #15 tablet 12/22/16 Unknown Rx Ibuprofen [Motrin] 600 mg PO Q8H PRN #15 tablet 12/22/16 Unknown Rx Ibuprofen [Motrin] 600 mg PO Q6H PRN #30 tablet 04/21/17 Unknown Rx Oseltamivir [Tamiflu] 75 mg PO BID #14 cap 04/21/17 Unknown Rx ED Physical Exam - General Limitations: No Limitations General appearance: alert, in no apparent distress - Head Head exam: Present: atraumatic, normocephalic, normal inspection - Eye Eye exam: Present: normal appearance, PERRL, EOMI. Absent: scleral icterus, conjunctival injection, nystagmus, periorbital swelling, periorbital tenderness Pupils: Present: normal accommodation - ENT ENT exam: Present: normal exam, normal orophraynx, mucous membranes moist, TM's normal bilaterally, normal external ear exam - Neck Neck exam: Present: normal inspection, full ROM. Absent: tenderness, meningismus, lymphadenopathy, thyromegaly - Respiratory Respiratory exam: Present: normal lung sounds bilaterally. Absent: respiratory distress, wheezes, rales, rhonchi, stridor, chest wall tenderness, accessory muscle use, decreased breath sounds, prolonged expiratory - Cardiovascular Cardiovascular Exam: Present: regular rate, normal rhythm, normal heart sounds. Absent: irregular rhythm, systolic murmur, diastolic murmur, rubs, gallop - GI/Abdominal GI/Abdominal exam: Present: soft, normal bowel sounds. Absent: distended, tenderness, guarding, rebound, rigid, diminished bowel sounds - Rectal Rectal exam: Present: deferred - Extremities Exam Extremities exam: Present: normal inspection, full ROM, normal capillary refill. Absent: tenderness, pedal edema, joint swelling, calf tenderness - Back Exam Back exam: Present: normal inspection, full ROM. Absent: tenderness, CVA tenderness (R), CVA tenderness (L), muscle spasm, paraspinal tenderness, vertebral tenderness, rash noted - Neurological Exam Neurological exam: Present: alert, oriented X3, CN II-XII intact, normal gait, reflexes normal - Psychiatric Psychiatric exam: Present: normal affect, normal mood - Skin Skin exam: Present: warm, dry, intact, normal color. Absent: rash ED Course Vital Signs 04/21/17 04/21/17 04/21/17 04:37 05:10 10:05 Temperature 100.0 F H 98.3 F Pulse Rate 79 73 Respiratory 18 18 20 Rate Blood Pressure 120/75 105/71 O2 Sat by Pulse 98 98 Oximetry - Reevaluation(s) Reevaluation #1: 04/21/17 10:32 Patient is speaking in full sentences with no signs of distress noted. ED Medical Decision Making - Medical Decision Making This is a 26-year-old male that presents with positive influenza A. Patient is stable and was examined by me. Chest x-ray has been obtained and dictated by radiologist with normal exam. Patient was notified of x-ray results with no question about the patient. Influenza swab obtained with positive A. Patient received Motrin in the ED. Patient is discharged with Tamiflu and Motrin. Patient was instructed not to consume any alcohol while taking Tamiflu. Patient was instructed to increase hydration and rest. Patient was also instructed to take Motrin for fever episodes. Vital signs are stable before discharge. Patient was instructed Follow-up with a primary care doctor in 3-5 days or if symptoms worsen and continue return to emergency room as soon as possible. At time time of discharge, the patient does not seem toxic or ill in appearance. No acute signs of distress noted. Patient agrees to discharge treatment plan of care. No further questions noted by the patient. Critical care attestation.: If time is entered above; I have spent that time in minutes in the direct care of this critically ill patient, excluding procedure time. ED Disposition Clinical Impression: Influenza A Disposition: DC-01 TO HOME OR SELFCARE Is pt being admited?: No Does the pt Need Aspirin: No Condition: Stable Instructions: Influenza (ED), Oseltamivir (By mouth), Ibuprofen (By mouth) Additional Instructions: Follow-up with a primary care doctor in 3-5 days or if symptoms worsen and continue return to emergency room as soon as possible. Do not consume any alcohol while taking Tamiflu and 24 hours after finishing. Increase rest and hydration and take Motrin as prescribed for fever and body aches. Prescriptions: Ibuprofen [Motrin] 600 mg PO Q6H PRN #30 tablet PRN Reason: Fever Oseltamivir [Tamiflu] 75 mg PO BID #14 cap Referrals: PRIMARY CARE, [Primary Care Provider] - 3-5 Days SADIE COREY MD [Staff Physician] - 3-5 Days [facility] [place] [Outside] - 3-5 Days [facility] [Outside] - 3-5 Days Forms: Work/School Release Form(ED)
--- NOTE | 2017-04-21 11:19 | XRay Report ---
ROUTINE CHEST, TWO VIEWS: Cough PA and lateral views demonstrate the heart and mediastinal contour to be of normal size and shape. The lungs are clear and fully expanded and the soft tissues and bony structures are normal. IMPRESSION: Normal study.
[2017-04-21 11:44] VITALS: BP 118/76
== END 2017-04-21 11:43 | disposition home or self-care (01) ==
LOC: ED 03:02
DX: J10.1 Influenza due to other identified influenza virus with other respiratory manifestations (principal); G43.909 Migraine, unspecified, not intractable, without status migrainosus
CPT/HCPCS: 71046; 87400; 99283

== ENCOUNTER 2021-01-25 12:41 | Emergency (ER) | payer SELFPAY ==
[2021-01-25 13:04] VITALS: BP 118/96
[2021-01-25] MEDS ORDERED: IBUPROFEN 800 MG TAB PO ONE (13:52)
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
== END 2021-01-25 16:25 | disposition home or self-care (01) ==
LOC: EEVIPCON 12:41 → ED 12:41
DX: S16.1XXA Strain of muscle, fascia and tendon at neck level, initial encounter (principal); S20.219A Contusion of unspecified front wall of thorax, initial encounter; S80.02XA Contusion of left knee, initial encounter; Y08.89XA Assault by other specified means, initial encounter; Y93.89 Activity, other specified; Y92.89 Other specified places as the place of occurrence of the external cause; Y99.8 Other external cause status
CPT/HCPCS: 71046; 72040; 99283